=== PATIENT | female | born 1980 | race Caucasian/White ===

== ENCOUNTER 2021-10-12 00:32 | Observation (INO) ==
[2021-10-12] MEDS ORDERED: Acetaminophen 325 MG TABLET PO PRN (04:44)
[2021-10-12] MEDS ORDERED: Ondansetron 4 MG/2 ML VIAL IVP PRN (04:44)
[2021-10-12] MEDS ORDERED: Naloxone 0.4 MG/ML INJ IVP PRN (04:44)
[2021-10-12] MEDS ORDERED: 0.9 % Sodium Chloride 1,000 ML IVC SCH (04:45)
[2021-10-12 05:30] LABS: Hematocrit 39.4 % (35.3-44.9); Mean Corpuscular Hemoglobin 31.1 pg (28.0-33.3); Mean Corpuscular Volume 94.3 fL (83.0-100.0); Mean Platelet Volume 11.1 fL (9.4-12.4); Platelet Count 235 K/mcL (140-400); Red Blood Count 4.18 M/mcL (3.82-4.97); Red Cell Distribution Width 12.5 % (11.5-14.5); White Blood Count 7.6 K/mcL (4.3-11.1)
[2021-10-12 05:35] LABS: BUN/Creatinine Ratio 9 (6-26); Blood Urea Nitrogen 7 mg/dL (6-20); Calcium 8.6 mg/dL (8.6-10.3); Carbon Dioxide 20 mEq/L (23-29); Chloride 106 mEq/L (98-107); Glucose 120 mg/dL (70-105); Osmolality,Calculated 277 (280-300); Potassium 3.9 mEq/L (3.5-5.1); Sodium 134 mEq/L (136-145); eGFR For African Americans > 60 (> 60); eGFR For Non-African Americans > 60 (> 60)
[2021-10-12 06:11] LABS: Chol/HDL Ratio 3.4 (0-4.9)
[2021-10-12 06:51] LABS: Albumin 4.5 g/dL (3.5-5.7); Albumin/Globulin Ratio 1.7 (1.1-2.2); Bilirubin,Direct 0.1 mg/dL (0.0-0.2); Bilirubin,Indirect 0.4 mg/dL (0.0-1.0); Bilirubin,Total 0.5 mg/dL (0.3-1.0); Globulin 2.7 g/dL (2.4-3.5); Total Protein 7.2 g/dL (6.4-8.9)
[2021-10-12 07:16] LABS: Estimated Average Glucose 100 mg/dl; Hemoglobin A1C 5.1 %
[2021-10-12 07:25] LABS: Troponin I < 0.03 ng/mL (< 0.04)
[2021-10-12 07:46] LABS: Hepatitis B Surface Antigen Nonreactive (Nonreactive)
[2021-10-12 08:15] LABS: Hepatitis B Core IgM Nonreactive (Nonreactive)
[2021-10-12 08:16] LABS: Hepatitis A Antibody IgM Nonreactive (Nonreactive)
[2021-10-12 10:23] VITALS: BP 118/73; PULSE 78; TEMP 98.2; O2SAT 98
[2021-10-12 12:23] LABS: Hepatitis C Virus Antibody Reactive (Nonreactive)
== END 2021-10-12 13:33 | disposition home or self-care (01) ==
LOC: 3ANU
PROVIDERS: ADMIT Internal Medicine; ATTEND Internal Medicine